=== PATIENT | female | born 1955 | race Caucasian/White ===

== ENCOUNTER 2017-11-17 11:25 | Day surgery (SDC) | payer OTHER ==
[2017-11-17] MEDS ORDERED: PROPOFOL 40 ML (13:44)
== END 2017-11-17 14:31 | disposition home or self-care (01) ==
LOC: GIL 11:25
DX: Z12.11 Encounter for screening for malignant neoplasm of colon (principal); K29.50 Unspecified chronic gastritis without bleeding; K64.0 First degree hemorrhoids
CPT/HCPCS: 43239; 88305; 88312